=== PATIENT | female | born 1950 | race Caucasian/White ===

== ENCOUNTER 2017-01-16 11:14 | Outpatient (CLI) | payer MEDICARE, BC ==
[~2017-01-16] VITALS: Ht 162.6 cm; Wt 80.3 kg
[2017-01-16] MEDS ORDERED: LEVOTHYROXINE75 MCG ORAL (11:41)
[2017-01-16] MEDS ORDERED: SIMVASTATIN20 MG ORAL (11:41)
[2017-01-16 11:42] VITALS: BP 93/59
--- NOTE | 2017-01-16 17:21 | GI Initial Consult Note ---
HoaChapis Sanchezoi N.PRadha 01/16/17 1721: History of Present Illness General Date patient seen: Jan 16, 2017 Time patient seen: 11:00 Referring physician: TAMI Reason for Consultation: COLONOSCOPY SCREENING Present Illness HPI 66 year old female patient referred by Dr. Brunner for evaluation of colonoscopy screening. The patient has no history of any endoscopic procedures. She presents today with occasional c/o of constipation and left knee pain. Denies any weight loss and/or changes in dietary habits. Home Meds Reported Medications Simvastatin (ZOCOR) 20 Mg Tablet, 20 MG ORAL BEDTIME, TAB 01/16/17 Levothyroxine Sodium* (LEVOTHYROXINE SODIUM*) 75 Mcg Tablet, 75 MCG ORAL DAILY, TAB Take in the morning on an empty stomach, at least 30 minutes before food. 01/16/17 Med list reviewed/reconciled: Yes Allergies: Coded Allergies: No Known Allergies (Unverified , 01/16/17) Patient History History Provided By: Patient PMH Narrative Hypothyroidism elevated cholesterol PSHx Rt foot Rt shoulder Social History: Denies: alcohol use, drug use, other, smoking Review of Systems All Other Systems: negative except mentioned in HPI Physical Exam Vital Signs Date Time Temp Pulse Resp B/P Pulse Ox O2 Delivery O2 Flow Rate FiO2 01/16/17 11:42 97.0 16 93/59 98 Sp02 EP Interpretation: reviewed General Appearance: well appearing, no apparent distress, alert Head: normocephalic EENT: PERRL/EOMI, normal ENT inspection, TMs normal Neck: normal inspection, full range of motion, supple Respiratory: normal inspection, chest non-tender, lungs clear, normal breath sounds, no rhonchi, no respiratory distress Cardiovascular: normal peripheral pulses, normal rate Gastrointestinal: normal inspection, non tender, soft Rectal: normal exam, deferred Genitourinary: no CVA tenderness Musculoskeletal: normal inspection, back normal Neurologic: normal inspection, alert, oriented x3, responsive Psychiatric: normal inspection, judgement/insight normal, memory normal Skin: normal inspection, normal color, no rash, warm/dry, palpation normal Lymphatic: normal inspection, no adenopathy GI: Plan Problems: (1) Colonoscopy refused (2) Hypothyroidism (3) Elevated cholesterol Plan recommend initial colonoscopy screening >> refused at this time, pt will consider and contact us refill rx >> levothyroxine 75 mcg. simvastatin 20 mg. RTC prn Seen with Dr. Oh. Thank you for this kind referral. R[place]MON [place] 01/17/17 1259: History of Present Illness Present Illness Home Meds Reported Medications Simvastatin (ZOCOR) 20 Mg Tablet, 20 MG ORAL BEDTIME, TAB 01/16/17 Levothyroxine Sodium* (LEVOTHYROXINE SODIUM*) 75 Mcg Tablet, 75 MCG ORAL DAILY, TAB Take in the morning on an empty stomach, at least 30 minutes before food. 01/16/17 Allergies: Coded Allergies: No Known Allergies (Unverified , 01/16/17) GI: Plan Plan The patient was seen and examined at bedside and all new and available data was reviewed in the patients chart. I agree with the above findings, impression and plan. (Patient seen earlier today. Signature stamp does not reflect patient encounter time.). -Chapis Mcnamara MD, N.P. Jan 16, 2017 17:21 [place] Jan 17, 2017 12:59
== END 2017-01-16 11:50 | disposition home or self-care (01) ==
LOC: PAN 11:14
DX: E03.9 Hypothyroidism, unspecified (principal); E78.00 Pure hypercholesterolemia, unspecified; K59.00 Constipation, unspecified; M25.562 Pain in left knee
CPT/HCPCS: 99201

== ENCOUNTER 2017-10-25 13:49 | Outpatient (CLI) | payer MEDICARE, BC ==
[~2017-10-25 13:49] MED LIST: LEVOTHYROXINE75 MCG ORAL; SIMVASTATIN20 MG ORAL
[2017-10-25 13:54] VITALS: BP 102/65
--- NOTE | 2017-10-25 15:22 | GI Progress Note ---
Assessment/Plan Problems: (1) Elevated cholesterol ICD Codes: E78.00 - Pure hypercholesterolemia, unspecified SNOMED: 75751498 (2) Hypothyroidism ICD Codes: E03.9 - Hypothyroidism, unspecified SNOMED: 63185081 Status: stable Status Narrative Seen with Dr. Hanson. Assessment/Plan labs drawn today >> CBC, CMP, TSH/Free T4, Cholesterol Panel Rx MVI, Vitamin D 35337Z RTC x 1 month The patient was seen and examined at bedside and all new and available data was reviewed in the patients chart. I agree with the above findings, impression and plan. (Patient seen earlier today. Signature stamp does not reflect patient encounter time.). - Yovani Hanson MD Subjective Gastrointestinal/Abdominal: Reports: no symptoms Objective Last 24 Hour Vital Signs Date Time Temp Pulse Resp B/P (MAP) Pulse Ox O2 Delivery O2 Flow Rate FiO2 10/25/17 13:54 98.1 56 16 102/65 98 98.1 General Appearance: WD/WN, no apparent distress, alert Cardiovascular: normal rate Respiratory/Chest: normal breath sounds, no respiratory distress Abdominal Exam: normal bowel sounds, non tender, soft Extremities: normal range of motion, non-tender Gaye Camara [employer] October 25, 2017 15:22
[2017-10-25 15:57] LABS: APPEARANCE,URINE CLEAR; BILIRUBIN, URINE NEGATIVE (NEGATIVE); COLOR,URINE PALE YELLOW; GLUCOSE, URINE (UA) NEGATIVE (NEGATIVE); KETONES,URINE NEGATIVE (NEGATIVE); LEUKOCYTE ESTERASE ,URINE 2+ (NEGATIVE); NITRITE,URINE NEGATIVE (NEGATIVE); PH,URINE 6 (4.5-8.0); PROTEIN,URINE NEGATIVE (NEGATIVE); UROBILINOGEN,URINE NORMAL MG/DL (0.0-1.0)
[2017-10-25 16:01] LABS: BASOPHILS % (AUTO) 1.4 % (0.0-2.0); EOSINOPHILS % (AUTO) 1.5 % (0.0-3.0); HEMATOCRIT 39.2 % (37.0-47.0); HEMOGLOBIN 13.5 G/DL (12.0-16.0); LYMPHOCYTES % (AUTO) 39.2 % (20.0-45.0); MEAN CORPUSCULAR VOLUME 87 FL (80-99); MONOCYTES % (AUTO) 7.4 % (1.0-10.0); NEUTROPHILS % (AUTO) 50.4 % (45.0-75.0); PLATELET COUNT 248 K/UL (150-450); RED BLOOD COUNT 4.51 M/UL (4.20-5.40); RED CELL DISTRIBUTION WIDTH 11.3 % (11.6-14.8); WHITE BLOOD COUNT 8.1 K/UL (4.8-10.8)
[2017-10-25 16:28] LABS: ALANINE AMINOTRANSFERASE 23 U/L (12-78); ALBUMIN 3.8 G/DL (3.4-5.0); ALBUMIN/GLOBULIN RATIO 1.1 (1.0-2.7); ALKALINE PHOSPHATASE 57 U/L (46-116); ANION GAP 6 mmol/L (5-15); ASPARTATE AMINO TRANSFERASE 17 U/L (15-37); BILIRUBIN,TOTAL 0.3 MG/DL (0.2-1.0); BLOOD UREA NITROGEN 17 mg/dL (7-18); CALCIUM 9.8 MG/DL (8.5-10.1); CARBON DIOXIDE 29 MMOL/L (21-32); CHLORIDE 104 MMOL/L (98-107); CHOLESTEROL 312 MG/DL (< 200); CREATININE 0.6 MG/DL (0.55-1.30); HDL CHOLESTEROL 61 MG/DL (40-60); POTASSIUM 4.2 MMOL/L (3.5-5.1); SODIUM 139 MMOL/L (136-145); TRIGLYCERIDES 122 MG/DL (30-150)
== END 2017-10-25 14:19 | disposition home or self-care (01) ==
LOC: PAN 13:49
DX: E78.00 Pure hypercholesterolemia, unspecified (principal); E03.9 Hypothyroidism, unspecified
CPT/HCPCS: 36415; 80053; 80061; 81003; 82306; 84439; 84443; 85025; G0463; 99212

== ENCOUNTER 2018-02-25 14:24 | Outpatient (CLI) | payer MEDICARE, BC ==
[~2018-02-25] VITALS: Ht 30.5 cm; Wt 0.5 kg
[2018-02-25 14:30] VITALS: BP 89/56
[2018-02-25] MEDS ORDERED: Vitamin B12 1000mcg/ml Inj IM ONE (15:00)
--- NOTE | 2018-02-26 10:11 | GI Progress Note ---
Assessment/Plan Problems: (1) Alopecia ICD Codes: L65.9 - Nonscarring hair loss, unspecified SNOMED: 03775175 (2) Elevated cholesterol ICD Codes: E78.00 - Pure hypercholesterolemia, unspecified SNOMED: 12701595 (3) Hypothyroidism ICD Codes: E03.9 - Hypothyroidism, unspecified SNOMED: 49531001 Status: stable Status Narrative Seen with Dr. Hanson. Assessment/Plan B12 shot Synthroid 75mcg Lipitor 20mg Linzess Vit D fu mammogram, bone scan RTC x1 month The patient was seen and examined at bedside and all new and available data was reviewed in the patients chart. I agree with the above findings, impression and plan. (Patient seen earlier today. Signature stamp does not reflect patient encounter time.). - Yovani Hanson MD Subjective Gastrointestinal/Abdominal: Reports: no symptoms Subjective c/o of hairloss Objective Last 24 Hour Vital Signs Date Time Temp Pulse Resp B/P (MAP) Pulse Ox O2 Delivery O2 Flow Rate FiO2 02/25/18 14:30 98.0 76 16 89/56 98 98.0 General Appearance: WD/WN, no apparent distress, alert Cardiovascular: normal rate Respiratory/Chest: normal breath sounds, no respiratory distress Abdominal Exam: normal bowel sounds, non tender, soft Extremities: normal range of motion, non-tender Gaye Camara NP Feb 26, 2018 10:11
== END 2018-02-25 14:54 | disposition home or self-care (01) ==
LOC: PAN 14:24
DX: L65.9 Nonscarring hair loss, unspecified (principal); E78.00 Pure hypercholesterolemia, unspecified; E03.9 Hypothyroidism, unspecified
CPT/HCPCS: G0463; J3420; 99213

== ENCOUNTER 2018-03-28 13:09 | Outpatient (CLI) | payer MEDICARE, BC ==
[~2018-03-28] VITALS: Ht 30.5 cm; Wt 0.5 kg
[2018-03-28] MEDS ORDERED: Vitamin B12 1000mcg/ml Inj IM ONE (13:30)
--- NOTE | 2018-03-28 15:26 | GI Progress Note ---
Assessment/Plan Problems: (1) Elevated cholesterol ICD Codes: E78.00 - Pure hypercholesterolemia, unspecified SNOMED: 72715768 (2) Alopecia ICD Codes: L65.9 - Nonscarring hair loss, unspecified SNOMED: 69153703 (3) Hypothyroidism ICD Codes: E03.9 - Hypothyroidism, unspecified SNOMED: 84199899 Status: stable Status Narrative Discussed with Dr. Hanson. Assessment/Plan B12 shot given cont Linzess RTC prn The patient was seen and examined at bedside and all new and available data was reviewed in the patients chart. I agree with the above findings, impression and plan. (Patient seen earlier today. Signature stamp does not reflect patient encounter time.). - Yovani Hanson MD Subjective Gastrointestinal/Abdominal: Reports: no symptoms Objective T 98.2 BP 107/59 P 65 97 RA General Appearance: WD/WN, no apparent distress, alert Cardiovascular: normal rate Respiratory/Chest: normal breath sounds, no respiratory distress Abdominal Exam: normal bowel sounds, non tender, soft Extremities: normal range of motion, non-tender Gaye Camara NP Mar 28, 2018 15:26
[2018-03-28 15:50] VITALS: BP 107/59
== END 2018-03-28 13:39 | disposition home or self-care (01) ==
LOC: PAN 13:09
DX: E78.00 Pure hypercholesterolemia, unspecified (principal); L65.9 Nonscarring hair loss, unspecified; E03.9 Hypothyroidism, unspecified
CPT/HCPCS: 96372; G0463; J3420; 99212